=== PATIENT | male | born 1960 | race Caucasian/White ===

== ENCOUNTER 2023-06-24 14:43 | Emergency (ER) | payer OTHER ==
[~2023-06-24] VITALS: Ht 177.8 cm; Wt 98.2 kg
[2023-06-24 14:59] LABS: BASOPHILS 0.8 % (0-2); EOSINOPHILS 3.6 % (0-6); HEMATOCRIT 49.8 % (35.0-50.0); HEMOGLOBIN 17.2 g/dL (12.0-18.0); LYMPHOCYTES 30.1 % (24-44); MCH 32.2 (27-36); MCHC 34.6 g/dl (30-36); MONOCYTES 10.5 % (0-12); PLATELET COUNT 263 K/uL (140-440); RBC 5.35 M/ul (4.3-5.7); RDW 13.1 (10.5-15.0)
[2023-06-24 15:15] LABS: ALBUMIN 3.9 g/dL (3.4-5.0); ALBUMIN/GLOBULIN RATIO 0.98 (1.1-2.4); ANION GAP 11.6 (7-21); BILIRUBIN, TOTAL 1.2 ng/dL (0.2-1.0); BUN/CREATININE RATIO 20.58 (6.0-28.6); CALCIUM 8.9 mg/dL (8.5-10.1); CREATININE, SERUM 1.02 mg/dL (0.70-1.30); POTASSIUM 3.6 mmol/L (3.5-5.1); PROTEIN, TOTAL 7.9 g/dL (6.4-8.2)
[2023-06-24] MEDS ORDERED: DAILY VALUE1 EACH PO (15:19)
[2023-06-24] MEDS ORDERED: FISH OIL 1,001000 MG PO (15:19)
[2023-06-24] MEDS ORDERED: K-TAB ER20 MEQ PO (15:20)
[2023-06-24] MEDS ORDERED: HYDROCHLOROTHIA25 MG PO (15:20)
[2023-06-24] MEDS ORDERED: METHOCARBAMOL500 MG PO (15:21)
[2023-06-24] MEDS ORDERED: FINASTERIDE5 MG PO (15:21)
[2023-06-24] MEDS ORDERED: FLOMAX0.4 MG PO (15:22)
[2023-06-24] MEDS ORDERED: FOLIC ACID1 MG PO (15:22)
[2023-06-24] MEDS ORDERED: ROPINIROLE HCL0.5 MG PO (15:22)
[2023-06-24] MEDS ORDERED: LIPITOR80 MG PO (15:24)
[2023-06-24] MEDS ORDERED: CYMBALTA20 MG (15:25)
[2023-06-24] MEDS ORDERED: VAZALORE81 MG PO (15:26)
[2023-06-24] MEDS ORDERED: VITAMIN D325 MC2 PO (15:26)
[2023-06-24] MEDS ORDERED: LEVOTHYROXINE50 MC1 PO (15:27)
[2023-06-24] MEDS ORDERED: VITAMIN E400 UNI1 PO (15:27)
[2023-06-24] MEDS ORDERED: SUPER B WITH V1 EACH PO (15:28)
[2023-06-24] MEDS ORDERED: VIAGRA100 MG PO (15:29)
[2023-06-24] MEDS ORDERED: LISINOPRIL5 MG PO (15:45)
[2023-06-24 16:15] VITALS: BP 146/89
--- NOTE | 2023-06-25 06:10 | EKG ---
[facility] [address] [facility] [place], [place] [address] Signed Normal sinus rhythm No previous ECGs available Confirmed by WILMAN CURRAN MD ([id number]) on 06/25/2023 6:10:41 AM Electronically Signed By: WILMAN CURRAN 06/25/23 0610 PATIENT NAME: BERNIE MCCANNSHAY LEONARD Electrocardiogram DATE OF : 56 PHYSICIAN: WILMAN CURRAN REPORT #: [id number] REPORT IS CONFIDENTIAL AND NOT TO BE RELEASED WITHOUT AUTHORIZATION
== END 2023-06-24 16:15 | disposition home or self-care (01) ==
LOC: ED 14:43
PROVIDERS: Emergency Medicine
DX: R07.89 Other chest pain (principal); Z79.82 Long term (current) use of aspirin; Z79.890 Hormone replacement therapy; Z79.899 Other long term (current) drug therapy
CPT/HCPCS: 36415; 71045; 80053; 84484; 85025; 93005; 93010; 99285-25; A9270